=== PATIENT | male | born 1965 | race African-American/Black ===

== ENCOUNTER 2021-04-11 08:54 | Emergency (ER) | payer OTHER ==
[~2021-04-11] VITALS: Ht 182.9 cm; Wt 122.0 kg
[~2021-04-11 08:54] MED LIST: ALDACTONE25 MG PO; AMLODIPINE BESY10 MG PO; ATENOLOL 50 MG50 M1 PO; CLONIDINE HCL0.2 M2 PO; FLEXERIL PO; FLOMAX0.4 MG PO; POTASSIUM20 PO; PROSCAR 5MG TABL5 MG PO; SPIRONOLACT/HCT1 TA1 PO; VERAPAMIL ER240 M1 PO
[2021-04-11 09:01] VITALS: BP 144/87
[2021-04-11] MEDS ORDERED: HYDROCODON-ACE1 EAC7 PO (09:09)
== END 2021-04-11 09:18 | disposition home or self-care (01) ==
LOC: M.ERS 08:54
DX: S86.911A Strain of unspecified muscle(s) and tendon(s) at lower leg level, right leg, initial encounter (principal); M19.90 Unspecified osteoarthritis, unspecified site; I10 Essential (primary) hypertension; Z90.49 Acquired absence of other specified parts of digestive tract; Z79.899 Other long term (current) drug therapy; X58.XXXA Exposure to other specified factors, initial encounter; Y93.89 Activity, other specified; Y92.89 Other specified places as the place of occurrence of the external cause; Y99.8 Other external cause status